=== PATIENT | female | born 1940 | race Caucasian/White ===

== ENCOUNTER 2016-12-08 05:24 | Day surgery (SDC) | payer MEDICARE ==
[~2016-12-08] VITALS: Ht 157.5 cm; Wt 56.7 kg
[~2016-12-08 05:24] MED LIST: CALCIUM 500 + D1 TAB PO; FISH OIL 1,0001 CA1 PO; MULTI-DAY VITAM1 TAB PO; NORCO 10/325 TA1 TA1 PO; PRAVASTATIN SOD10 MG PO; THERAGRAN-M ADV1 TA1 PO
[2016-12-08 06:34] VITALS: BP 131/72; Ht 157.5 cm; Wt 56.7 kg
[2016-12-08 06:42] LABS: BASOPHILS 0.5 % (0-2); EOSINOPHILS 1.3 % (0-7); HEMATOCRIT 42.5 % (36.0-48.0); HEMOGLOBIN 14.3 g/dL (12-16); LYMPHOCYTES 27.5 % (15-50); MCH 31.6 pg (26.0-34.0); MCHC 33.6 g/dL (31.0-37.0); MCV 93.8 fL (80.0-100.0); MEAN PLATELET VOLUME 9.8 fL (7.4-10.4); MONOCYTES 12.2 % (2-11); NEUTROPHILS 58.5 % (40-80); PLATELET COUNT 186 10x3/uL (130-400); RBC 4.53 10x6/uL (4.00-5.40); RDW 12.3 % (11.5-14.5); WBC 5.5 10x3/uL (4.8-10.8)
[2016-12-08 07:00] LABS: APTT 28.2 SECONDS (22.8-39.4); INR 1.04 (0.85-1.17); PROTIME 13.4 SECONDS (11.6-15.0)
--- NOTE | 2016-12-08 08:39 | NUR ---
PT'S PROCEEDURE ON TRANSPORT CART. PAD BETWEEN ARMS, GROUNDING PADS ON ARACELIS THIGHS. L/N :[id number], EXP09/08/2018; [id number], EXP 08/24/18
--- NOTE | 2016-12-09 09:08 | OP ---
PATIENT NAME: GAVINO GREGG MEDICAL RECORD: [id number] :40 LOCATION:D.OPS ADMISSION DATE: SURGEON: ALYSSA BROCK MD DATE OF OPERATION: 12/08/2016 PREOPERATIVE DIAGNOSES: 1. History of colon cancer. 2. History of complex polyps. The polyps are complex due to their size and their location in the cecum. POSTOPERATIVE DIAGNOSES: 1. History of colon cancer. 2. History of complex polyps. The polyps are complex due to their size and their location in the cecum. 3. One new sessile polyp, 8 x 9 mm. 4. Moderate regrowth of the cecal polyp, which is on the inferior lip of the ileocecal valve. PROCEDURES: 1. Total colonoscopy to the cecum. 2. Hot biopsy forceps polypectomy times 1. 3. Cold endoscopic biopsies of the cecal polyp and then ablation of the polyp with the argon plasma police sergeant precinct, which is a radiofrequency type of ablation of a benign colonic process. ENDOSCOPIC COURSE: The patient was conveyed to the operating room electively on 12/08/2016. General anesthesia was induced by the anesthesia staff. The patient was placed in the Pena position. A digital rectal examination was performed. A colonoscope was inserted through the anus. It was easily advanced to the cecum. The prep was adequate. I noted the cecal polyp that was contiguous with the inferior lip of the ileocecal valve. Cold endoscopic biopsies of the polyp were performed. I then ablated the remaining polypoid tissue utilizing the argon plasma police sergeant precinct with the right colon setting in the forced mode. I slowly withdrew the endoscope. I identified another sessile polyp and this was removed in its entirety utilizing a hot biopsy forceps polypectomy technique. A retroflexed view was obtained in the rectum. I then unretroflexed the scope and removed it under direct vision. I will see the patient in my office in 2-3 weeks to discuss the results of her biopsies. I will plan for her next colonoscopy with the argon plasma police sergeant precinct to take place in 1 year. TRANSINT:[id number] Voice Confirmation ID: [id number] DOCUMENT ID: [id number] OPERATIVE REPORT [id number] GAVINO GREGG ALYSSA BROCK MD at 0908 CC: [id number] DICTATION DATE: 12/08/162129 STORE PROTECTION SPECIALIST: 12/09/16 0049 [facility] 12/08/16 [facility] [address] [facility] [place] [address]
== END 2016-12-08 11:45 | disposition home or self-care (01) ==
LOC: D.OPS 05:24 → D.PAN 08:00 → D.OPS 09:30 → D.PAN 09:30 → D.OPS 11:45
PROVIDERS: Anesthesiology
DX: D12.0 Benign neoplasm of cecum (principal); D12.2 Benign neoplasm of ascending colon; Z85.038 Personal history of other malignant neoplasm of large intestine; Z86.010 Personal history of colon polyps; Z01.812 Encounter for preprocedural laboratory examination

== ENCOUNTER → 2017-01-06 16:46 | Outpatient (CLI) | payer MEDICARE ==
[2016-12-08 06:34] VITALS: BMI 22.9
== END | disposition home or self-care (01) ==
LOC: D.MAMMO 08:15
DX: Z12.31 Encounter for screening mammogram for malignant neoplasm of breast (principal)

== ENCOUNTER 2017-12-30 08:38 | Day surgery (SDC) | payer MEDICARE ==
[~2017-12-30] VITALS: Ht 157.5 cm; Wt 56.7 kg
--- NOTE | ~2017-12-30 | OP ---
PATIENT NAME: GAVINO GREGG MEDICAL RECORD: [id number] :40 LOCATION:D.OPS ADMISSION DATE: SURGEON: ALYSSA BROCK MD DATE OF OPERATION: 12/30/2017 PREOPERATIVE DIAGNOSES: 1. History of complex polyps of the cecum as well as the ascending colon. 2. History of cecal polyp. 3. History of ascending colon polyp. POSTOPERATIVE DIAGNOSES: 1. Significant regrowth of the cecal polyp, which was on the inferior lip of the ileocecal valve. 2. No evidence of recurrence or persistence of the ascending colon polyp. PROCEDURES: 1. Total colonoscopy to cecum. 2. Polypectomy utilizing the endoscopic mucosal resection technique of the cecal polyp. Application of 2 endoscopic clips at the polypectomy site and utilization of the argon plasma production designer at the polypectomy site. SURGEON: Alyssa Brock MD MEDICINE ASSISTANT: None. BLOOD LOSS: Minimal. ANESTHESIA: General. COMPLICATIONS: None. The risks, possible complications, and alternatives to the procedure were explained to the patient. She elects to proceed. OPERATIVE COURSE: The patient was conveyed to the operating room electively on 12/30/2017. General anesthesia was induced by the anesthesia staff. The patient was placed in the Pena position. A digital rectal examination was performed. A colonoscope was inserted through the anus. It was easily advanced to the cecum. The prep was borderline. I identified the cecal polyp. It was on the inferior lip of the ileocecal valve. I advanced a sclerotherapy needle. Eleview was injected underneath the polyp. There was a good lift to the polyp. Now that I had a stable pillow, I was able to advance an endoscopic snare. I was able to place this around the base of the polyp, and utilizing the coagulation setting and then the cut setting, I removed about 95% of the polyp. It was placed within an endoscopic retrieval net and was withdrawn out through the anus. I then readvanced the colonoscope to the cecum. There was a small amount of residual polypoid tissue and this was ablated utilizing the argon plasma production designer with the right colon setting in the forced mode. I wanted to reinforce this area as I had to go fairly deep in order to remove this polyp. Two endoscopic clips were deployed to close the mucosal defect. There was no evidence of a full-thickness bowel injury. I slowly withdrew the endoscope. I irrigated and aspirated extensively. I dragged the folds. A combination of normal imaging and narrow band imaging were utilized. A retroflexed view was obtained in the rectum. There were some diminutive polyps there, which were likely hyperplastic and these were ablated utilizing the argon plasma OPERATIVE REPORT [id number] GAVINO GREGG production designer. I then unretroflexed the scope and removed it under direct vision. I will see the patient in my office in 2-3 weeks and we will review the results of the biopsies at that time. I will plan for the next colonoscopy with the argon plasma production designer to take place in one year. TRANSINT:[id number] Voice Confirmation ID: [id number] DOCUMENT ID: [id number] ALYSSA BROCK MD at 2121 CC: ANYA GRAYSON and DORIS JORDAN [id number] DICTATION DATE: 12/30/17 1233 ELECTRICAL AND RADIO AIRCRAFT MECHANIC: 12/30/17 1249 [facility] 12/30/17 [place] [address] [place] [address]
[~2017-12-30 08:38] MED LIST changes: +TUMERIC; +VITAMIN B-121000 MCG PO
[2017-12-30 09:06] LABS: HEMATOCRIT 44.1 % (36.0-48.0); HEMOGLOBIN 15.1 g/dL (12-16); MCH 31.4 pg (26.0-34.0); MCHC 34.2 g/dL (31.0-37.0); MCV 91.7 fL (80.0-100.0); MEAN PLATELET VOLUME 9.6 fL (7.4-10.4); RBC 4.81 10x6/uL (4.00-5.40); RDW 12.2 % (11.5-14.5); WBC 6.3 10x3/uL (4.8-10.8)
[2017-12-30 09:17] VITALS: BP 143/74; Ht 157.5 cm; Wt 56.7 kg
== END 2017-12-30 14:00 | disposition home or self-care (01) ==
LOC: D.OPS 08:38 → D.PAN 10:30 → D.OPS 11:00 → D.PAN 13:00 → D.OPS 13:45 → D.PAN 13:45 → D.OPS 14:00
PROVIDERS: Anesthesiology
DX: D37.4 Neoplasm of uncertain behavior of colon (principal); Z86.010 Personal history of colon polyps; Z01.812 Encounter for preprocedural laboratory examination

== ENCOUNTER 2020-02-06 05:31 | Day surgery (SDC) | payer MEDICARE ==
[~2020-02-06] VITALS: Ht 157.5 cm; Wt 59.1 kg
[2020-02-06 06:34] LABS: HEMATOCRIT 42.9 % (36.0-48.0); HEMOGLOBIN 14.5 g/dL (12-16); MCH 31.1 pg (26.0-34.0); MCHC 33.8 g/dL (31.0-37.0); MCV 92.1 fL (80.0-100.0); MEAN PLATELET VOLUME 9.8 fL (7.4-10.4); RBC 4.66 10x6/uL (4.00-5.40); RDW 12.7 % (11.5-14.5); WBC 6.2 10x3/uL (4.8-10.8)
[2020-02-06 06:55] VITALS: Ht 157.5 cm; Wt 59.1 kg
--- NOTE | 2020-02-06 16:10 | HP ---
PATIENT: GAVINO GREGG MEDICAL RECORD: [id number] ACCOUNT: [id number] LOCATION:JOSE : 40 ADMISSION DATE: 02/06/20 PCP: ANYA GRAYSON DO HISTORY AND PHYSICAL EXAMINATION HISTORY OF PRESENT ILLNESS: The patient has a history of complex colon polyps. I performed a colon resection on her in the past. She has had no abdominal pain. No rectal bleeding. 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 She underwent a laparoscopic hand-assisted sigmoid colectomy with sigmoidoscopy on 07/31/2013. The pathology on the cecal polyp, which is on the ileocecal valve was a villous adenoma, which was 1.5 x 1.2 x 0.9 cm. It was free of dysplastic changes and there was no neoplasm present. She is here for colonoscopy and polypectomy. HOME MEDICATIONS: Vitamin B12, pravastatin. ALLERGIES: No known drug allergies. SOCIAL HISTORY: Nonsmoker. PAST MEDICAL AND SURGICAL HISTORY: Previous colonoscopies and also hand-assisted laparoscopic surgery. REVIEW OF SYSTEMS: Negative for coronary artery disease or hypertension. Negative for CVA, seizures. Negative for diabetes or thyroid problems. PHYSICAL EXAMINATION: GENERAL: The patient does not appear acutely ill. She does not appear chronically ill. VITAL SIGNS: Reviewed. EARS: External ears appear normal. EYES: Extraocular movements are intact. NECK: Trachea is midline. CHEST: No intercostal retractions. PULMONARY: Nonlabored. No stridor. IMPRESSION: History of complex colon polyps including one in the cecum/ileocecal valve. PLAN: Colonoscopy and polypectomy. TRANSINT:[id number] Voice Confirmation ID: [id number] DOCUMENT ID: [id number] ALYSSA BROCK MD at 1610 CC: ANYA GRAYSON and DORIS JORDAN [id number] DICTATION DATE: 02/06/20 0736 COATINGS INSPECTOR: 02/06/20 1118 [facility] 02/06/20 [facility] [address] [place] [address]
--- NOTE | 2020-02-07 13:35 | OP ---
PATIENT NAME: GAVINO GREGG MEDICAL RECORD: [id number] :40 LOCATION:DHaroldoOPS ADMISSION DATE: SURGEON: ALYSSA BROCK MD DATE OF OPERATION: 02/06/2020 PREOPERATIVE DIAGNOSES: History of complex polyp of the cecum and ileocecal valve. POSTOPERATIVE DIAGNOSES: History of complex polyp of the cecum and ileocecal valve with no definite regrowth of the polyp. PROCEDURE: 1. Total colonoscopy to cecum. 2. Hot biopsies of the ileocecal valve. SURGEON: Alyssa Brock MD CONTINUING EDUCATION INSTRUCTOR: None. BLOOD LOSS: Minimal. ANESTHESIA: IV sedation. COMPLICATIONS: None. Risks and possible complications and alternatives of the procedure were explained to the patient. She elects to proceed. ENDOSCOPIC COURSE: The patient was conveyed in the endoscopy suite electively on 02/06/2020. IV sedation was induced by the anesthesia staff. The patient was placed in the Pena position. Digital rectal examination was performed. A colonoscope was inserted through the anus. It was easily advanced to the cecum. The prep was adequate. I carefully scrutinized the ileocecal valve. I intubated the ileum, which was normal. I utilized normal imaging as well as narrow band imaging. Took some cold endoscopic biopsies of the inferior lip of the ileocecal valve. I examined the cecum carefully as well. I noted no evidence of regrowth of polypoid tissue. I did biopsy the inferior lip of the ileocecal valve. These were cold biopsies. I then treated this area with the argon plasma purchasing contracting clerk utilizing the right colon setting in the forced mode. I slowly withdrew the endoscope. The pullback was greater than 14-minute pullback. I dragged the folds. A retroflexed view was obtained in the rectum. There were a few small polyps in the rectum that I ablated with the argon plasma purchasing contracting clerk; however, this was a really minor procedure. I then unretroflexed the scope and removed it under direct vision. I will see the patient in my office in 2-3 weeks. I will plan for her next colonoscopy to take place in 3 years. TRANSINT:[id number] Voice Confirmation ID: [id number] DOCUMENT ID: [id number] OPERATIVE REPORT [id number] GAVINO GREGG ALYSSA BROCK MD at 6746 CC: ANYA GRAYSON [phone] DICTATION DATE: 02/06/20 0851 HOT AIR FURNACE INSTALLER AND REPAIRER: 02/06/20 1821 [facility] 02/06/[address] [facility] [address] [place] [address]
== END 2020-02-06 09:29 | disposition home or self-care (01) ==
LOC: D.OPS 05:31
PROVIDERS: Anesthesiology; ATTEND Surgery
DX: Z86.010 Personal history of colon polyps (principal); K63.5 Polyp of colon